=== PATIENT | female | born 1995 | race Two or more races ===

== ENCOUNTER 2019-12-15 05:41 | Emergency (ER) | payer OTHER ==
[2019-12-15] MEDS ORDERED: MAG HYDROX/AL HYDROX/SIMETH SUSP 30 ML UDCUP PO ONE (06:37)
[2019-12-15] MEDS ORDERED: LIDOCAINE 2% VISCOUS SOLN 15 ML UDCUP PO ONE (06:37)
[2019-12-15] MEDS ORDERED: NORMAL SALINE 1000 ML 1,000 ML IV ONE (06:37)
[2019-12-15] MEDS ORDERED: METOCLOPRAMIDE HCL INJ/PF 10 MG/2 ML SDV IV ONE (06:38)
--- NOTE | 2019-12-15 06:54 | ER Document Report ---
Entered by THIAGO MILLARD SCRIBE 12/15/19 0629 Acting as scribe for:MARIBEL DOOLEY MD ED General - General Chief Complaint: Pelvic Pain Stated Complaint: VOMITING/PELVIC PAIN/SPOTTING/8 WEEKS Time Seen by Provider: 12/15/19 06:27 Mode of Arrival: Ambulatory Information source: Patient Notes: This 24-year-old female patient approximately 8 weeks that is G3,P1,A1 (ectopic) presents to the emergency department today with complaints of lower abdominal cramping since yesterday. She reports that she has had nausea and vomiting throughout her and she is not taking anything for it. This was confirmed to be intrauterine 3 days ago with an ultrasound at [facility]. Patient states she "spotted a little bit" when she found out she was and then again yesterday. Patient is not taking vitamins. - Related Data Allergies/Adverse Reactions: No Known Allergies Allergy (Unverified 12/15/19 06:52) Past Medical History - General Information source: Patient - Social History Smoking Status: Never Smoker Cigarette use (# per day): No Chew tobacco use (# tins/day): No Smoking Education Provided: No Frequency of alcohol use: None Drug Abuse: None Lives with: Alone Family History: Reviewed & Not Pertinent Renal/ Medical History: Reports: Hx Ectopic Past Surgical History: Reports: Hx Cholecystectomy Review of Systems - Review of Systems Constitutional: No symptoms reported EENT: No symptoms reported Cardiovascular: No symptoms reported Respiratory: No symptoms reported Gastrointestinal: See HPI, Abdominal pain, Nausea, Vomiting Genitourinary: No symptoms reported Female Genitourinary: See HPI, , Vaginal bleeding Musculoskeletal: No symptoms reported Skin: No symptoms reported Hematologic/Lymphatic: No symptoms reported Neurological/Psychological: No symptoms reported -: Yes All other systems reviewed and negative Physical Exam - Vital signs Vitals: Temp Pulse Resp BP Pulse Ox 98.5 F 96 18 139/89 H 97 12/15/19 05:46 12/15/19 05:46 12/15/19 05:46 12/15/19 05:46 12/15/19 05:46 - Notes Notes: Physical Exam: General: Alert, appears well. HEENT: Normocephalic. Atraumatic. PERRL. Extraocular movements intact. O ropharynx clear. Neck: Supple. Non-tender. Respiratory: No respiratory distress. Clear and equal breath sounds bilaterally. Cardiovascular: Regular rate and rhythm. Abdominal: Obese. Lower abdomen, pelvic, and epigastric tenderness to palpation. No distension. Normal Bowel Sounds. Back: No gross abnormalities. Extremities: Moves all four extremities. Upper extremities: Normal inspection. Normal ROM. Lower extremities: Normal inspection. No edema. Normal ROM. Neurological: Normal cognition. AAOx4. Normal speech. Psychological: Normal affect. Normal Mood. Skin: Warm. Dry. Normal color. Course - Re-evaluation Re-evalutation: 12/15/19 10:13 Patient reports her nauseousness is better. She was given a copy of the radiologist report to take to her [facility] LABORATORY TECHNICIAN doctors at the [facility]. She indicates that she is going to be following up with the OB clinic at [facility] and is supposed to be assigned to a doctor next week. - Vital Signs Vital signs: Temp Pulse Resp BP Pulse Ox 98.2 F 92 16 136/82 H 98 12/15/19 10:49 12/15/19 10:49 12/15/19 10:49 12/15/19 10:49 12/15/19 10:49 - Laboratory Result Diagrams: 12/15/19 07:15 12/15/19 07:15 Laboratory results interpreted by me: 12/15/19 12/15/19 12/15/19 07:15 07:15 09:11 WBC 12.3 H BUN 6 L Creatinine 0.43 L Glucose 123 H Beta HCG, Quant 293341.00 H Ur Leukocyte Esterase SMALL H - Diagnostic Test Radiology reviewed: Image reviewed, Reports reviewed - Transvaginal ultrasound shows 6-week 2-day intrauterine gestation with a heart rate of 113. There is a convex hyperechoic structure projecting into the gestational sac which could represent a chorionic bump, small hematoma bulging into gas station 6, or an an embryonic second that is being resorbed. Discharge - Discharge Clinical Impression: with 6 completed weeks gestation Nausea and vomiting Qualifiers: Vomiting type: unspecified Vomiting Intractability: non-intractable Qualified Code(s): R11.2 - Nausea with vomiting, unspecified Condition: Stable Disposition: HOME, SELF-CARE Additional Instructions: Hyperemesis Gravidarum: Hyperemesis gravidarum is the medical term for severe vomiting during . We don't know exactly why it occurs, but it's a common problem. Dehydration can occur. This reduces blood flow to the placenta, decreasing the baby's nourishment. The baby will also become dehydrated. There can be harmful changes in blood sodium, potassium, or acid balance. Our goal is to correct, and prevent, dehydration. For severe cases, we give IV fluids. Antinausea medication will be prescribed. (Don't be concerned about " defects" -- the risk to you and your baby from the hyperemesis is the biggest problem. The antinausea medication is very safe at this stage of .) Call the doctor if you have vaginal bleeding, abdominal pain, severe ligh theadedness or weakness, or other alarming symptoms. I guess I will be updated Your ultrasound shows a 6-week 2-day intrauterine with heart rate of 113. You will be prescribed Reglan for your nauseousness. Be sure to drink plenty of fluids and stay well-hydrated. Follow-up with your DENTURE LABORATORY TECHNICIAN doctor next week for recheck if you are having any further problems. Take the copy of the ultrasound report when you go to see your doctor. RETURN TO THE EMERGENCY ROOM IF ANY NEW OR WORSENING SYMPTOMS. Prescriptions: Metoclopramide HCl [Reglan 10 mg Tablet] 1 tab PO ASDIR PRN #25 tablet PRN Reason: I personally performed the services described in the documentation, reviewed and edited the documentation which was dictated to the scribe in my presence, and it accurately records my words and actions.
[2019-12-15 07:39] LABS: ABSOLUTE BASOPHILS # (AUTO) 0.1 10^3/uL (0.0-0.2); ABSOLUTE EOSINOPHILS # (AUTO) 0.4 10^3/uL (0.0-0.6); ABSOLUTE LYMPHOCYTES (AUTO) 2.8 10^3/uL (0.5-4.7); ABSOLUTE MONOCYTES (AUTO) 1.1 10^3/uL (0.1-1.4); ABSOLUTE NEUT (AUTO) 7.8 10^3/uL (1.7-8.2); BASOPHILS % (AUTO) 0.8 % (0-2); EOSINOPHILS % (AUTO) 3.2 % (0-6); HEMATOCRIT 40.5 % (36.0-47.0); HEMOGLOBIN 13.8 g/dL (12.0-15.5); MEAN CORPUSCULAR HEMOGLOBIN 29.3 pg (27.0-33.4); MEAN CORPUSCULAR VOLUME 86 fl (80-97); MONOCYTES % (AUTO) 9.1 % (3-13); PLATELET COUNT 336 10^3/uL (150-450); RED BLOOD COUNT 4.71 10^6/uL (3.72-5.28); RED CELL DISTRIBUTION WIDTH 12.4 % (11.5-14.0); SEGMENTED NEUTROPHILS % (AUTO) 63.9 % (42-78); TOTAL CELLS COUNTED % (AUTO) 100 %; WHITE BLOOD COUNT 12.3 10^3/uL (4.0-10.5)
[2019-12-15 07:47] LABS: ALBUMIN 4.1 g/dL (3.5-5.0); ALKALINE PHOSPHATASE 61 U/L (38-126); ANION GAP 9 (5-19); ASPARTATE AMINO TRANSFERASE 23 U/L (14-36); BILIRUBIN,DIRECT 0.2 mg/dL (0.0-0.4); BILIRUBIN,TOTAL 0.3 mg/dL (0.2-1.3); BLOOD UREA NITROGEN 6 mg/dL (7-20); CALCIUM 9.3 mg/dL (8.4-10.2); CARBON DIOXIDE 26 mmol/L (22-30); CHLORIDE 103 mmol/L (98-107); GLUCOSE 123 mg/dL (75-110); POTASSIUM 3.8 mmol/L (3.6-5.0); TOTAL PROTEIN 7.6 g/dL (6.3-8.2)
--- NOTE | 2019-12-15 08:39 | RADIOLOGY REPORT (SQ) ---
EXAM DESCRIPTION: U/S OB TRANSVAGINAL W/O DOP IMAGES COMPLETED DATE/TIME: 12/15/2019 8:10 am REASON FOR STUDY: 8 weeks, pelvic cramps, spotting COMPARISON: None. TECHNIQUE: Transvaginal static and realtime grayscale images acquired of the pelvis. Additional froilan cted spectral and color Doppler images recorded. All images stored on PACs. bHCG: Not available. CLINICAL DATES: Unknown. LIMITATIONS: None. FINDINGS: FETUS: Single Living intrauterine . ULTRASOUND EGA: 6 weeks 2 days. ULTRASOUND NITHYA: 08/07/2020. CRL: 5 mm. FHR: 113 beats per minute. SURVEY: Too early to assess. AMNIOTIC FLUID: Too early to assess. PLACENTA: Too early to assess. SUBCHORIONIC BLEED: No. UTERUS: The uterus measures 8.9 x 5.1 x 6.2 cm. There is an intrauterine gestational sac that contai ns an embryo and a yolk sac; the yolk sac measures 5 mm. In addition, there is a convex hyperechoic structure that projects into the gestational sac ; this could represent a chorionic bump which is an uncommon finding in a 1st trimester ultrasound that could represent a small hematoma bulging into the gestational sac or an anembryonic 2nd that is being resorbed. CERVICAL LENGTH: 3 cm Closed. RIGHT ADNEXA: The right ovary measures 4.3 x 3.7 x 4.1 cm and on Doppler there is intact arterial inf low and venous outflow within the ovarian stroma. There is a cyst in the right ovary that measures 2 .3 x 3.1 x 2.3 cm. LEFT ADNEXA: Unable to visualize the left ovary. There is no adnexal mass. FREE FLUID: None. OTHER: No other finding. IMPRESSION: LIVE INTRAUTERINE . EGA 6 weeks 2 days. Convex hyperechoic structure that projects into the gestational sac could represent a chorionic bump which is an uncommon finding in a 1st trimester ultrasound that could represent a small hematoma bulg ing into the gestational sac or an anembryonic 2nd that is being resorbed. Right ovarian cyst that measures 2.3 x 3.1 x 2.3 cm. Trimester of : First trimester - 0 to 13 weeks. TECHNICAL DOCUMENTATION: JOB ID: [id number] 2010 [employer]- All Rights Reserved rev Reading location - IP/workstation name: [email or web address]
[2019-12-15] MEDS ORDERED: RINGERS SOLUTION,LACTATED 1,000 ML IV ONE (09:02)
[2019-12-15 09:39] LABS: APPEARANCE,URINE CLEAR; BILIRUBIN,URINE NEGATIVE (NEGATIVE); COLOR,URINE YELLOW; GLUCOSE, URINE NEGATIVE (NEGATIVE); KETONES,URINE NEGATIVE (NEGATIVE); LEUKOCYTE ESTERASE,URINE SMALL (NEGATIVE); NITRITE,URINE NEGATIVE (NEGATIVE); PROTEIN,URINE NEGATIVE (NEGATIVE); URINE SPECIFIC GRAVITY 1.009; UROBILINOGEN,URINE NEGATIVE mg/dL (<2.0)
[2019-12-15 10:03] LABS: ADD MANUAL MICROSCOPIC YES
[2019-12-15 10:04] LABS: RBC,URINE NONE SEEN /HPF
[2019-12-15 10:49] VITALS: BP 136/82
== END 2019-12-15 10:49 | disposition home or self-care (01) ==
LOC: ER 05:41
DX: O21.9 Vomiting of pregnancy, unspecified (principal); O26.891 Other specified pregnancy related conditions, first trimester; R10.2 Pelvic and perineal pain; R10.819 Abdominal tenderness, unspecified site; R10.816 Epigastric abdominal tenderness; O26.851 Spotting complicating pregnancy, first trimester; Z3A.01 Less than 8 weeks gestation of pregnancy; Z87.59 Personal history of other complications of pregnancy, childbirth and the puerperium
CPT/HCPCS: 99285; 96361; 96374; 86900; 86901; 36415; 84702; 85025; 80053; 81001; 76817; J3490; J2765; J7030; J7120